=== PATIENT | male | born 1955 | race Caucasian/White ===

== ENCOUNTER 2018-12-13 11:37 | Inpatient (IN) | payer OTHER ==
[2018-12-13 14:04] LABS: ADD MAN DIFF? NO
[2018-12-13 14:08] LABS: WHITE BLOOD COUNT 8.5 10^3/ul (4.8-10.8)
[2018-12-13 14:08] LABS: BASOPHILS % 0.4 % (0.0-2.0); EOSINOPHILS # 0.1 10^3/ul (0.0-0.5); EOSINOPHILS % 1.1 % (0.0-7.0); HEMATOCRIT 46.2 % (42.0-52.0); HEMOGLOBIN 15.4 g/dl (14.0-18.0); LYMPHOCYTES # 2.6 10^3/ul (0.8-2.9); MEAN CORPUSCULAR HEMOGLOBIN 30.7 pg (29.0-33.0); MEAN CORPUSCULAR HGB CONC 33.3 g/dl (32.0-37.0); MEAN PLATELET VOLUME 9.7 fl (7.4-10.4); MONOCYTE # 0.7 10^3/ul (0.3-0.9); MONOCYTES % 8.2 % (0.0-11.0); NEUTROPHIL # 5.1 10^3/ul (1.6-7.5); NEUTROPHILS % 60.1 % (39.0-77.0); PLATELET COUNT 251 10^3/UL (140-415); RED BLOOD COUNT 5.02 10^6/ul (4.70-6.10); RED CELL DISTRIBUTION WIDTH 12.3 % (11.5-14.5)
[2018-12-13 14:12] LABS: URINE BLOOD (Dip) POC Negative (NEGATIVE); URINE GLUCOSE (Dip) POC Negative (NEGATIVE); URINE KETONES (Dip) POC Negative (NEGATIVE); URINE LEUKOCYTE EST (Dip) POC Negative (NEGATIVE); URINE NITRITE (Dip) POC Negative (NEGATIVE); URINE TOTAL PROTEIN POC Negative (NEGATIVE)
[2018-12-13 14:12] LABS: URINE PH (Dip) POC 5.5 (5.0-8.5)
[2018-12-13 14:25] LABS: ALANINE AMINOTRANSFERASE 20 IU/L (13-69); ALBUMIN 4.6 g/dl (3.3-4.9); ALBUMIN/GLOBULIN RATIO 1.15; ALKALINE PHOSPHATASE 115 IU/L (42-121); ANION GAP 14 (5-13); ASPARTATE AMINO TRANSFERASE 16 IU/L (15-46); BILIRUBIN,INDIRECT 0.3 mg/dl (0-1.1); BILIRUBIN,TOTAL 0.3 mg/dl (0.2-1.3); BLOOD UREA NITROGEN 14 mg/dl (7-20); CALCIUM 9.5 mg/dl (8.4-10.2); CARBON DIOXIDE 30 mmol/L (21-31); CHLORIDE 99 mmol/L (97-110); Estimated GFR > 60 mL/min (>60); GLUCOSE 100 mg/dl (70-220); LIPASE 75 U/L (23-300); POTASSIUM 4.1 mmol/L (3.5-5.1); SODIUM 143 mmol/L (135-144); TOTAL PROTEIN 8.6 g/dl (6.1-8.1)
[2018-12-13] MEDS: ONDANSETRON 4 MG INJ IV ×2 (15:45→23:58)
[2018-12-13] MEDS: morphine 2 MG INJ IV (15:45)
[2018-12-13] MEDS: PIPER-TAZO 3.375 GM IV (PMX) 100 ML IVPB (16:24)
[2018-12-13] MEDS: SOD CHLORIDE 0.9% 1,000 ML IV (16:24)
[2018-12-13] MEDS ORDERED: SOD CHLORIDE 0.45% 1,000 ML IV (19:03)
[2018-12-13] MEDS ORDERED: morphine SULFATE/PF (2 MG/2 ML) SYG IV (19:30)
[2018-12-13] MEDS ORDERED: NACL 0.9% 3 ML SYG IV (19:30)
[2018-12-13] MEDS ORDERED: ONDANSETRON 4 MG INJ IV ×2 (19:30→23:30)
[2018-12-13] MEDS ORDERED: PIPER-TAZO 3.375 GM IV (PMX) 100 ML IVPB (21:00)
[2018-12-13] MEDS ORDERED: BUPIVACAINE 0.5%/EPI (SDV) 30 ML INJ (21:33)
[2018-12-13] MEDS ORDERED: ROCURONIUM 50 MG INJ (22:13)
[2018-12-13] MEDS ORDERED: PROPOFOL 20 ML ×2 (22:13→23:27)
[2018-12-13] MEDS ORDERED: METOCLOPRAMIDE 10 MG INJ (22:14)
[2018-12-13] MEDS ORDERED: KETOROLAC 30 MG INJ (22:14)
[2018-12-13] MEDS ORDERED: ONDANSETRON 4 MG INJ (22:14)
[2018-12-13] MEDS ORDERED: ROPIVACAINE 0.5 % 30 ML VIAL (22:14)
[2018-12-13] MEDS ORDERED: DIPHENHYDRAMINE 50 MG INJ IV (22:30)
[2018-12-13] MEDS ORDERED: hydrALAzine 20 MG INJ IV (22:30)
[2018-12-13] MEDS ORDERED: HYDROmorphONE 1 MG/5 ML IV SYRINGE IV (22:30)
[2018-12-13] MEDS ORDERED: LABETALOL HCL 20MG INJ IV (22:30)
[2018-12-13] MEDS: BUPIVACAINE 0.5%/EPI (SDV) 30 ML INJ (22:33)
[2018-12-13] MEDS ORDERED: CEFAZOLIN 1 GM INJ (22:37)
[2018-12-13] MEDS ORDERED: NEOSTIGMINE 3 MG/3 ML SYRINGE (23:25)
[2018-12-13] MEDS ORDERED: METOPROLOL 5 MG INJ (23:25)
[2018-12-13] MEDS ORDERED: HYDROCODONE/APAP (10/325) TAB PO (23:30)
[2018-12-13] MEDS ORDERED: ACETAMINOPHEN 325 MG TAB PO (23:30)
[2018-12-13] MEDS ORDERED: HYDROmorphONE 0.5 MG/0.5 ML SYG IV (23:30)
[2018-12-13] MEDS: MEPERIDINE 25 MG INJ IV (23:57)
[2018-12-14] MEDS: HYDROmorphONE 1 MG/5 ML IV SYRINGE IV ×2 (00:06→00:12)
[2018-12-14] MEDS: D5-NS + KCL 20 MEQ 1,000 ML IV ×3 (01:36→13:14)
[2018-12-14] MEDS: PIPER-TAZO 3.375 GM IV (PMX) 100 ML IVPB ×4 (01:42→21:51)
[2018-12-14 06:06] LABS: ADD MAN DIFF? NO
[2018-12-14 06:11] LABS: WHITE BLOOD COUNT 9.4 10^3/ul (4.8-10.8)
[2018-12-14 06:11] LABS: BASOPHILS % 0.3 % (0.0-2.0); EOSINOPHILS % 0.1 % (0.0-7.0); HEMATOCRIT 41.5 % (42.0-52.0); HEMOGLOBIN 13.9 g/dl (14.0-18.0); LYMPHOCYTES # 1.8 10^3/ul (0.8-2.9); LYMPHOCYTES % 18.7 % (15.0-51.0); MEAN CORPUSCULAR HGB CONC 33.5 g/dl (32.0-37.0); MEAN CORPUSCULAR VOLUME 92.4 fl (82.0-101.0); MONOCYTE # 0.7 10^3/ul (0.3-0.9); NEUTROPHIL # 6.9 10^3/ul (1.6-7.5); NEUTROPHILS % 73.6 % (39.0-77.0); PLATELET COUNT 243 10^3/UL (140-415); RED BLOOD COUNT 4.49 10^6/ul (4.70-6.10); RED CELL DISTRIBUTION WIDTH 12.3 % (11.5-14.5)
[2018-12-14] MEDS: PANTOPRAZOLE 40 MG INJ IV (06:14)
[2018-12-14 06:26] LABS: ANION GAP 9 (5-13); BLOOD UREA NITROGEN 10 mg/dl (7-20); CALCIUM 8.8 mg/dl (8.4-10.2); CARBON DIOXIDE 26 mmol/L (21-31); CHLORIDE 104 mmol/L (97-110); CREATININE 0.87 mg/dl (0.61-1.24); Estimated GFR > 60 mL/min (>60); GLUCOSE 137 mg/dl (70-220); SODIUM 139 mmol/L (135-144)
[2018-12-14] MEDS: ACETAMINOPHEN 325 MG TAB PO (06:26)
[2018-12-14] MEDS: CEPASTAT LOZENGE MT (10:43)
[2018-12-14] MEDS: DEXTROSE 5%-0.45% NACL 1,000 ML IV (16:16)
[2018-12-15] MEDS: PANTOPRAZOLE 40 MG INJ IV (05:25)
[2018-12-15] MEDS: PIPER-TAZO 3.375 GM IV (PMX) 100 ML IVPB ×2 (05:25→14:18)
[2018-12-15] MEDS: CEPASTAT LOZENGE MT ×2 (05:31→08:48)
[2018-12-15] MEDS: KETOROLAC 15 MG INJ IV (08:49)
[2018-12-15] MEDS: DEXTROSE 5%-0.45% NACL 1,000 ML IV ×2 (12:00→15:22)
== END 2018-12-15 18:53 | disposition home or self-care (01) | DRG 343 ==
LOC: E/R 11:37 → PP2 17:25
PROC: 0DTJ4ZZ Resection of Appendix, Percutaneous Endoscopic Approach (ICD-10-PCS; principal; 2018-12-13 22:13)
DX: K35.80 Unspecified acute appendicitis (principal); N40.0 Benign prostatic hyperplasia without lower urinary tract symptoms; K40.90 Unilateral inguinal hernia, without obstruction or gangrene, not specified as recurrent
CPT/HCPCS: 36415; 74176; 80048; 80053; 81003; 83690; 85025; 88304; 96374; 99285-25